=== PATIENT | female | born 1980 | race Caucasian/White ===

== ENCOUNTER → 2017-06-20 | Outpatient (CLI) | payer BC, OTHER ==
[~2017-06-20] MED LIST: ACET325 PO; ALBU90OI INH; AMOX500 PO; AMOX875 PO; ATOR40TA; CEPH500 PO; CHOL10002 PO; CIPR500 PO; ERYT.5TO OS; HYDACE5 PO; HYDR1TAB94 PO; HYDROCHLOROTHIAZIDE; IBUP200 PO; IBUP400 PO; IBUP800 PO; LEVSOD100; LOVA20 PO; METF500 PO; MULVIT PO; MULVITMIND PO; Motrin800 MG PO; NITR100CA PO; Norco 5-325 Ta1 EACH PO; OMEP20ER PO; ONDA4 PO; OXYACE5T PO; PENVK500 PO; PHENA100 PO; PHENA200 PO; PROM25 PO; PSEU120ER PO; Prednisone20 MG PO; RANI150 PO; SPACE CHAMBER1 EACH MC; SULTRIDS PO; Zithromax250 MG PO
[2017-06-22 11:16] LABS: HPV Genotype 16 Not Detected (NOTDET); HPV Genotype 18 Not Detected (NOTDET)
[2017-06-23 14:15] LABS: HPV High Risk Other Not Detected (NOTDET)
[2017-06-26 12:29] LABS: Source VAG/CERVIX
== END | disposition home or self-care (01) ==
LOC: LAB SHORT 15:41 → LAB 15:41
PROVIDERS: Advanced Practice Midwife
DX: Z01.419 Encounter for gynecological examination (general) (routine) without abnormal findings (principal)
CPT/HCPCS: 87624; G0123

== ENCOUNTER → 2018-06-04 | Outpatient (CLI) | payer BC ==
[~2018-06-04] MED LIST changes: +APRI1 EACH PO; +ONDA4ODT MM; +Synthroid25 MCG PO; +Tamiflu75 MG PO
== END | disposition home or self-care (01) ==
LOC: LAB SHORT 19:18 → LAB 19:18
DX: R10.32 Left lower quadrant pain (principal)
CPT/HCPCS: 87086

== ENCOUNTER → 2018-06-08 | Outpatient (CLI) | payer BC | END | disposition home or self-care (01) | LOC: LAB SRC 10:44 → LAB SHORT 10:44 | DX: R10.32 Left lower quadrant pain (principal) | CPT/HCPCS: 87086 ==

== ENCOUNTER → 2020-01-20 | Outpatient (CLI) | payer BC, OTHER | END | disposition home or self-care (01) | LOC: LAB SHORT 13:41 → LAB SRC 13:41 | DX: R82.81 Pyuria (principal) | CPT/HCPCS: 87086 ==

== ENCOUNTER → 2020-02-12 | Outpatient (CLI) | payer BC, OTHER ==
[2020-02-13 13:11] LABS: ADENOVIRUS F 40/41 Not Detected (Not Detected); ASTROVIRUS Not Detected (Not Detected); C DIFFICILE TOXIN A/B Not Detected (Not Detected); CRYPTOSPORIDIUM Not Detected (Not Detected); CYCLOSPORA CAYETANENSIS Not Detected (Not Detected); ENTAMOEBA HISTOLYTICA Not Detected (Not Detected); ENTEROAGGREGATIVE E COLI Not Detected (Not Detected); ENTEROPATHOGENIC E COLI Not Detected (Not Detected); ENTEROTOXIGENIC E COLI Not Detected (Not Detected); GIARDIA LAMBLIA Not Detected (Not Detected); NOROVIRUS GI/GII Not Detected (Not Detected); PLESIOMONAS SHIGELLOIDES Not Detected (Not Detected); ROTAVIRUS A Not Detected (Not Detected); SALMONELLA Not Detected (Not Detected); SAPOVIRUS Not Detected (Not Detected); SHIGA-TOXIN-PRODUCING E COLI Not Detected (Not Detected); SHIGELLA/ENTEROINVASIVE E COLI Not Detected (Not Detected); VIBRIO Not Detected (Not Detected); VIBRIO CHOLERAE Not Detected (Not Detected); YERSINIA ENTEROCOLITICA Not Detected (Not Detected)
== END | disposition home or self-care (01) ==
LOC: LAB 16:15
PROVIDERS: Nurse Practitioner Family
DX: R19.7 Diarrhea, unspecified (principal); R10.32 Left lower quadrant pain; R10.12 Left upper quadrant pain
CPT/HCPCS: 0097U

== ENCOUNTER → 2020-02-27 | Outpatient (CLI) | payer BC, OTHER ==
[2020-03-01 11:07] LABS: FATS, NEUTRAL Normal (.); FATS, TOTAL Normal (.)
== END | disposition home or self-care (01) ==
LOC: LAB SHORT 11:36 → LAB SRC 11:36
PROVIDERS: Physician Assistant
DX: R19.7 Diarrhea, unspecified (principal)
CPT/HCPCS: 82705

== ENCOUNTER 2021-05-16 18:11 | Observation (INO) | payer BC, OTHER ==
[~2021-05-16] VITALS: Ht 172.7 cm; Wt 127.0 kg
[2021-05-16 19:07] LABS: BASOPHILS ABSOLUTE AUTO 0.03 K/mm3 (0.00-0.23); BASOPHILS PERCENT AUTO 0 % (0-2); EOSINOPHILS ABSOLUTE AUTO 0.75 K/mm3 (0.00-0.68); EOSINOPHILS PERCENT AUTO 7 % (0-6); Hematocrit 42.5 % (33.0-51.0); Hemoglobin 13.7 g/dL (11.5-16.0); IMMATURE GRAN ABSOLUTE AUTO 0.04 K/mm3 (0.00-0.10); IMMATURE GRAN PERCENT AUTO 0 % (0-1); LYMPHOCYTES PERCENT AUTO 22 % (21-46); MONOCYTES ABSOLUTE AUTO 0.55 K/mm3 (0.16-1.47); MONOCYTES PERCENT AUTO 5 % (4-13); Mean Corpuscular HGB 26.4 pg (26.0-34.0); Mean Corpuscular HGB Conc 32.2 g/dL (31.5-36.5); Mean Corpuscular Volume 82 fL (80-100); Mean Platelet Volume 9.6 fL (9.1-12.4); NEUTROPHILS ABSOLUTE AUTO 7.62 K/mm3 (1.96-9.15); NEUTROPHILS PERCENT AUTO 66 % (41-73); Platelet Count 226 K/mm3 (150-400); RDW Coefficient Variation 13.6 % (11.7-14.2); RDW Standard Deviation 40.3 fL (35.1-46.3); Red Blood Cell Count 5.19 M/mm3 (3.80-5.20); White Blood Cell Count 11.49 K/mm3 (4.00-11.30)
[2021-05-16 19:26] LABS: Alanine Aminotransfer (ALT/SGP 28 U/L (12-78); Albumin, Blood 3.6 g/dL (3.4-5.0); Albumin/Globulin Ratio 0.9 (0.8-1.8); Alk Phos 78 U/L (50-136); Anion Gap 5 mmol/L (6-16); Aspartate Aminotrans (AST/SGOT 13 U/L (12-37); Bilirubin, Total 0.4 mg/dL (0.1-1.0); Blood Urea Nitrogen 14 mg/dL (8-24); Bun/Creatinine Ratio 17.2 (12.0-20.0); CO2, Blood 25 mmol/L (21-32); Chloride, Blood 106 mmol/L (98-108); Creatinine, Blood 0.81 mg/dL (0.40-1.00); Globulin, Blood 4.1 g/dL (2.2-4.0); Glomerular Filtration Rate >60 (60-); Glucose, Blood 147 mg/dL (70-99); Potassium, Blood 3.7 mmol/L (3.5-5.5); Sodium, Blood 136 mmol/L (136-145); Total Protein, Blood 7.7 g/dL (6.4-8.2)
[2021-05-16 20:14] LABS: Source, Urine Clean Catch
[2021-05-16 20:23] LABS: Bilirubin, Urine Neg (Neg); Blood, Urine 1+ (Neg); Glucose Qualitative, Urine Neg (Neg); Ketones, Urine Neg (Neg); Leukocyte Esterase, Urine 1+ (Neg); Nitrite, Urine Neg (Neg); Protein, Urine Neg (Neg); Urobilinogen, Urine NORM (Normal)
[2021-05-16 20:29] LABS: Appearance, Urine Cloudy (Clear); Color, Urine Pale Yellow (P-Yellow)
[2021-05-16 20:31] LABS: Bacteria Mod /hpf; Squamous Epithelial Cells Few /hpf (Few)
[2021-05-16] MEDS ORDERED: [UNRECOGNIZED DRUG - CODE] PO (21:08)
[2021-05-16] MEDS ORDERED: EUTHYROX75 MC1 PO (21:08)
[2021-05-16] MEDS ORDERED: LISINOPRIL2.5 MG PO (21:12)
[2021-05-17 00:14] LABS: Influenza A, PCR NEGATIVE (NEGATIVE); Influenza B, PCR NEGATIVE (NEGATIVE); Resp Syncytial Virus, PCR NEGATIVE (NEGATIVE); SARS-Cov-2 (COVID-19) PCR, MMC NEGATIVE (NEGATIVE)
--- NOTE | 2021-05-17 04:50 | NUR ---
ALERT AND ORIENTED X4. UP AD MEAGHAN. NPO FOR SURGERY TODAY. NO N/V THRU THE SHIFT. RECEIVED PAIN MED ONCE WITH GOOD RESULTS. VOIDING. SKIN INTACT.
--- NOTE | 2021-05-17 08:23 | NUR ---
DENIES ANY PAIN OR NAUSEA, REPORTS FEELING "BETTER" THIS AM, INDEPENDENT TO THE BATHROOM, NPO, CONT. TO MONITOR FOR ANY CHANGES.
--- NOTE | 2021-05-17 09:44 | NUR ---
History, Chart, Medications and Allergies reviewed before start of procedure. Patient confirms NPO status and agrees with scheduled surgery.
--- NOTE | 2021-05-17 12:23 | NUR ---
05/17/21 1223 Jaron Rivera PT ON SCHEDULED ANTIBIOTICS
[2021-05-17] MEDS ORDERED: HYDR1TAB94 PO (13:10)
--- NOTE | 2021-05-17 14:15 | NUR ---
S/P LAP VERA, PT IS DROWSY, AWAKENS EASILY, SIPS OF WATER GIVEN, WHEN ASKED IF HAVING PAIN PT RESPONDS "YES" THEN FALLS BACK ASLEEP, LUNGS CLEAR, HRR, HYPOACTIVE BT'S X4, ABD SOFT W/ 4 LAP INCISIONS, W/ WOUND GLUE, CONT. TO MONITOR VS AND ANY CHANGES.
--- NOTE | 2021-05-17 16:34 | NUR ---
PT REPORTS FEELING "BETTER" AMBULATING DOWN THE HALLS, VOIDING WITHOUT DIFFICULTY, STATES PAIN IS TOLERABLE AT THIS TIME, DENIES ANY NAUSE, ORQUIDEA REG DIET WELL.
--- NOTE | 2021-05-17 16:57 | NUR ---
DISCHARGED HOME, DC INSTRUCTIONS GIVEN, VERBALIZED UNDERSTANDING, PT DC'D WITH S.O.
== END 2021-05-17 16:55 | disposition home or self-care (01) ==
LOC: ER 18:11 → SURS 18:12
PROVIDERS: Student in an Organized Health Care Education/Training Program; Surgery; ADMIT Surgery
PROC: BF12YZZ Fluoroscopy of Gallbladder using Other Contrast (ICD-10-PCS; principal; 2021-05-17 11:15)
PROC: 0FT44ZZ Resection of Gallbladder, Percutaneous Endoscopic Approach (ICD-10-PCS; principal; 2021-05-17 11:15)
DX: K80.12 Calculus of gallbladder with acute and chronic cholecystitis without obstruction (principal); E11.9 Type 2 diabetes mellitus without complications; I10 Essential (primary) hypertension; E03.9 Hypothyroidism, unspecified; E66.9 Obesity, unspecified; Z68.41 Body mass index [BMI] 40.0-44.9, adult; Z87.891 Personal history of nicotine dependence
CPT/HCPCS: 0241U; 36415; 74300; 76705; 80053; 81001; 81025; 82947; 85025; 87086; 88304; 96374; 96375; 99285-25; A9270; C1729; J0694; J1100; J1885; J2250; J2405; J2543; J2550; J2704; J3010; J7030; J7120

== ENCOUNTER → 2021-10-07 | Outpatient (CLI) | payer BC, OTHER ==
[~2021-10-07] MED LIST changes: +EUTHYROX75 MC1 PO; +LISINOPRIL2.5 MG PO; +[UNRECOGNIZED DRUG - CODE] PO
[2021-10-07 10:14] LABS: BASOPHILS ABSOLUTE AUTO 0.03 K/mm3 (0.00-0.23); BASOPHILS PERCENT AUTO 0 % (0-2); EOSINOPHILS ABSOLUTE AUTO 0.23 K/mm3 (0.00-0.68); EOSINOPHILS PERCENT AUTO 3 % (0-6); Hematocrit 42.5 % (33.0-51.0); Hemoglobin 13.7 g/dL (11.5-16.0); IMMATURE GRAN ABSOLUTE AUTO 0.02 K/mm3 (0.00-0.10); IMMATURE GRAN PERCENT AUTO 0 % (0-1); LYMPHOCYTES ABSOLUTE AUTO 2.54 K/mm3 (0.84-5.20); LYMPHOCYTES PERCENT AUTO 30 % (21-46); MONOCYTES ABSOLUTE AUTO 0.43 K/mm3 (0.16-1.47); MONOCYTES PERCENT AUTO 5 % (4-13); Mean Corpuscular HGB 26.3 pg (26.0-34.0); Mean Corpuscular HGB Conc 32.2 g/dL (31.5-36.5); Mean Corpuscular Volume 82 fL (80-100); Mean Platelet Volume 9.8 fL (9.1-12.4); NEUTROPHILS ABSOLUTE AUTO 5.14 K/mm3 (1.96-9.15); NEUTROPHILS PERCENT AUTO 61 % (41-73); Platelet Count 213 K/mm3 (150-400); RDW Coefficient Variation 13.7 % (11.7-14.2); RDW Standard Deviation 40.1 fL (35.1-46.3); White Blood Cell Count 8.39 K/mm3 (4.00-11.30)
[2021-10-07 10:52] LABS: Bun/Creatinine Ratio 12.7 (12.0-20.0); Calcium, Blood 8.7 mg/dL (8.5-10.1); Creatinine, Blood 0.79 mg/dL (0.40-1.00); Potassium, Blood 4.1 mmol/L (3.5-5.5); Thyroid Stimulating Hormone 1.985 uIU/mL (0.360-4.800)
== END | disposition home or self-care (01) ==
LOC: LAB 10:08 → LAB SHORT 10:08
PROVIDERS: Physician Assistant Surgical
DX: R07.9 Chest pain, unspecified (principal); R53.83 Other fatigue
CPT/HCPCS: 80048; 84443; 84484; 85025; 85379

== ENCOUNTER → 2022-02-21 | Outpatient (CLI) | payer BC, OTHER ==
[2022-02-22 10:37] LABS: Candida species (DNA Probe) Positive (NEGATIVE); G. vaginalis (DNA Probe) Positive (NEGATIVE); T. vaginalis (DNA Probe) Negative (NEGATIVE)
[2022-02-23 17:11] LABS: HPV 16 Negative (Negative); HPV 18 Negative (Negative); HPV OTHER HR TYPES Negative (Negative)
== END ==
LOC: LAB SHORT 15:10 → LAB 15:10
PROVIDERS: Advanced Practice Midwife
DX: Z01.419 Encounter for gynecological examination (general) (routine) without abnormal findings (principal); N76.0 Acute vaginitis
CPT/HCPCS: 87480; 87510; 87624; 87660; G0123

== ENCOUNTER 2023-02-12 19:44 | Emergency (ER) | payer BC, OTHER ==
[~2023-02-12] VITALS: Ht 172.7 cm; Wt 124.7 kg
[2023-02-12 20:28] LABS: BASOPHILS ABSOLUTE AUTO 0.03 K/mm3 (0.00-0.23); BASOPHILS PERCENT AUTO 0 % (0-2); EOSINOPHILS ABSOLUTE AUTO 0.32 K/mm3 (0.00-0.68); EOSINOPHILS PERCENT AUTO 3 % (0-6); Hematocrit 45.1 % (33.0-51.0); Hemoglobin 14.7 g/dL (11.5-16.0); IMMATURE GRAN ABSOLUTE AUTO 0.03 K/mm3 (0.00-0.10); IMMATURE GRAN PERCENT AUTO 0 % (0-1); LYMPHOCYTES ABSOLUTE AUTO 2.68 K/mm3 (0.84-5.20); LYMPHOCYTES PERCENT AUTO 26 % (21-46); MONOCYTES ABSOLUTE AUTO 0.61 K/mm3 (0.16-1.47); MONOCYTES PERCENT AUTO 6 % (4-13); Mean Corpuscular HGB 27.2 pg (26.0-34.0); Mean Corpuscular HGB Conc 32.6 g/dL (31.5-36.5); Mean Corpuscular Volume 84 fL (80-100); NEUTROPHILS ABSOLUTE AUTO 6.48 K/mm3 (1.96-9.15); NEUTROPHILS PERCENT AUTO 64 % (41-73); Platelet Count 213 K/mm3 (150-400); RDW Coefficient Variation 12.9 % (11.7-14.2); RDW Standard Deviation 39.1 fL (35.1-46.3); White Blood Cell Count 10.15 K/mm3 (4.00-11.30)
[2023-02-12 21:50] LABS: Albumin, Blood 3.5 g/dL (3.4-5.0); Albumin/Globulin Ratio 0.8 (0.8-1.8); Bilirubin, Total 0.5 mg/dL (0.1-1.0); Bun/Creatinine Ratio 10.1 (12.0-20.0); Calcium, Blood 8.8 mg/dL (8.5-10.1); Creatinine, Blood 0.7 mg/dL (0.40-1.00); Globulin, Blood 4.2 g/dL (2.2-4.0); Potassium, Blood 3.8 mmol/L (3.5-5.5); Total Protein, Blood 7.7 g/dL (6.4-8.2)
[2023-02-12] MEDS ORDERED: MOUNJARO5 MG/0.5 M SQ (21:50)
[2023-02-12] MEDS ORDERED: ATENOLOL25 MG PO (21:51)
[2023-02-12] MEDS ORDERED: ATORVASTATIN CA20 MG PO (21:51)
[2023-02-12 22:45] VITALS: BP 102/70
== END 2023-02-12 22:53 | disposition home or self-care (01) ==
LOC: ER 19:44
PROVIDERS: Physician Assistant
DX: R19.7 Diarrhea, unspecified (principal); J06.9 Acute upper respiratory infection, unspecified; R10.9 Unspecified abdominal pain; Z79.890 Hormone replacement therapy; Z79.84 Long term (current) use of oral hypoglycemic drugs; Z87.891 Personal history of nicotine dependence
CPT/HCPCS: 80053; 85025; 96361; 96374; 99284-25; A9270; J2405; J7030

== ENCOUNTER → 2023-02-13 | Outpatient (CLI) | payer BC, OTHER ==
[~2023-02-13] MED LIST changes: +ATENOLOL25 MG PO; +ATORVASTATIN CA20 MG PO; +MOUNJARO5 MG/0.5 M SQ
[2023-02-13 11:25] LABS: Adenovirus F 40/41 Not Detected (NOT DETECT); Astrovirus Not Detected (NOT DETECT); Campylobacter Sp Not Detected (NOT DETECT); Cryptosporidium Not Detected (NOT DETECT); Cyclospora Cayetanensis Not Detected (NOT DETECT); E. Coli O157 Not Detected (NOT DETECT); Entamoeba Histolytica Not Detected (NOT DETECT); Enteroaggregative E. coli-EAEC Not Detected (NOT DETECT); Enteropathogenic E. coli-EPEC Not Detected (NOT DETECT); Enterotoxigenic E. coli-ETEC Not Detected (NOT DETECT); Giardia Lamblia Not Detected (NOT DETECT); Norovirus GI/GII Not Detected (NOT DETECT); Plesiomonas Shigelloides Not Detected (NOT DETECT); Rotavirus A Not Detected (NOT DETECT); Salmonella Sp Not Detected (NOT DETECT); Sapovirus Not Detected (NOT DETECT); Shiga Toxin-prod E. coli-STEC Not Detected (NOT DETECT); Shigella/Enteroin E. coli-EIEC Not Detected (NOT DETECT); Vibrio Cholerae Not Detected (NOT DETECT); Vibrio Sp Not Detected (NOT DETECT); Yersinia Enterocolitica Not Detected (NOT DETECT)
== END ==
LOC: LAB 08:05 → LAB SHORT 08:05
PROVIDERS: Physician Assistant
DX: R19.7 Diarrhea, unspecified (principal)
CPT/HCPCS: 87507

== ENCOUNTER 2023-10-08 05:51 | Emergency (ER) | payer BC, OTHER ==
[~2023-10-08] VITALS: Ht 172.7 cm; Wt 108.9 kg
[2023-10-08] MEDS ORDERED: Acetaminophen 500 MG Tab PO ONE (06:35)
[2023-10-08] MEDS ORDERED: Methyl Salicylate/Menth/Camph 57 GM TUBE TOP ONE (06:35)
[2023-10-08] MEDS ORDERED: Ketorolac Tromethamine 30mg Vial IM ONE (06:35)
[2023-10-08] MEDS ORDERED: Methocarbamol 500 MG Tab PO ONE (06:35)
[2023-10-08] MEDS ORDERED: Robaxin750 MG PO (07:50)
[2023-10-08 07:58] VITALS: BP 144/98
== END 2023-10-08 07:57 | disposition home or self-care (01) ==
LOC: ER 05:51
DX: S16.1XXA Strain of muscle, fascia and tendon at neck level, initial encounter (principal); E11.9 Type 2 diabetes mellitus without complications; E03.9 Hypothyroidism, unspecified; X58.XXXA Exposure to other specified factors, initial encounter; Z87.891 Personal history of nicotine dependence; Z79.899 Other long term (current) drug therapy
CPT/HCPCS: 72040; A9270; J1885

== ENCOUNTER → 2024-03-15 | Outpatient (CLI) | payer BC, OTHER ==
[~2024-03-15] MED LIST changes: +Robaxin750 MG PO
[2024-03-15 11:11] LABS: Source, Urine Clean Catch
[2024-03-15 11:35] LABS: White Blood Cells, Urine 50-100 /hpf (0-5)
[2024-03-15 11:36] LABS: Bacteria Many /hpf; Red Blood Cells, Urine 25-50 /hpf (0-2); Squamous Epithelial Cells Mod /hpf (Few)
== END ==
LOC: LAB SHORT 11:09 → LAB 11:09
DX: N39.0 Urinary tract infection, site not specified (principal); R31.9 Hematuria, unspecified
CPT/HCPCS: 81015; 87077; 87086; 87186

== ENCOUNTER → 2024-06-21 | Outpatient (CLI) | payer BC, OTHER | END | disposition home or self-care (01) | LOC: LAB SHORT 07:55 → LAB 07:55 | DX: N39.0 Urinary tract infection, site not specified (principal) | CPT/HCPCS: 87077; 87086; 87186 ==